=== PATIENT | female | born 1990 | race Caucasian/White ===

== ENCOUNTER 2019-05-14 07:47 | Inpatient (IN) ==
[2019-05-14] MEDS ORDERED: Naloxone 0.4 MG/ML INJ IVP PRN (07:50)
[2019-05-14] MEDS ORDERED: Metoclopramide 10 MG/2 ML VIAL IVP PRN (07:50)
[2019-05-14] MEDS ORDERED: Lidocaine 1% 20 ML MDV INFILT PRN (07:50)
[2019-05-14] MEDS ORDERED: *HR* Nalbuphine 10 MG/ML AMPUL IVP PRN (07:50)
[2019-05-14] MEDS ORDERED: Famotidine 20 MG/2 ML VIAL IVP PRN (07:50)
[2019-05-14] MEDS ORDERED: Ondansetron 4 MG/2 ML VIAL IVP PRN (07:50)
[2019-05-14] MEDS ORDERED: miSOPROStol 25 MCG TABLET VG SCH (08:00)
[2019-05-14] MEDS ORDERED: Ringers Solution, Lactated 1,000 ML IVC SCH (08:00)
[2019-05-14 08:37] LABS: Basophils % 0.4 %; Eosinophils # 0.2 K/mcL (0.0-0.6); Hematocrit 37.6 % (35.3-44.9); Hemoglobin 12.7 g/dL (11.5-15.4); Immature Granulocytes % 0.8 % (0-4); Lymphocytes # 1.8 K/mcL (0.6-4.6); Lymphocytes % 22.9 %; Mean Corpuscular HGB Conc 33.8 g/dL (31.6-35.5); Mean Corpuscular Hemoglobin 31.8 pg (28.0-33.3); Mean Platelet Volume 10.4 fL (9.4-12.4); Monocytes # 0.6 K/mcL (0.0-1.3); Monocytes % 7.7 %; Neutrophils # 5.1 K/mcL (1.6-8.9); Platelet Count 217 K/mcL (140-400); Segmented Neutrophils % 66.2 %; White Blood Count 7.7 K/mcL (4.3-11.1)
[2019-05-14 08:52] LABS: Amphetamine Screen,Urine Negative ng/mL (Cutoff=1000); Barbiturate Screen,Urine Negative ng/mL (Cutoff=200); Benzodiazepines Screen,Urine Negative ng/mL (Cutoff=200); Cannabinoid Screen,Urine Negative ng/mL (Cutoff = 50); Cocaine Screen,Urine Negative ng/mL (Cutoff= 300); Opiate Screen,Urine Negative ng/mL (Cutoff=300); Phencyclidine Screen,Urine Negative ng/mL (Cutoff=25)
--- NOTE | 2019-05-14 09:35 | OB/GYN History & Physical ---
Date of Encounter: 05/14/19 Time of Encounter: 09:32 Assessment and Plan (1) 40 weeks gestation of Current visit: No Status: Resolved 28-year-old at 40+4 weeks, Induction of labor, History of retained placenta 2, GBS negative/O+ Plan: Cytotec 50 g given orally, We will reexamine 4 hours approximately after Cytotec dose #1, Patient does not want epidural, Anticipate , History of Present Illness HPI: Ms. Payne is a 28 year old at 40+4 weeks who presents to labor and delivery for induction of labor. She does not report leaking of fluid, vaginal bleeding or contractions, feels good movement. history uncomplicated though the patient had retained placenta in her last 2 deliveries. The second delivery required extraction of the placenta in the OR under anesthesia. GBS negative, blood type O+ Past Med Surg Social Fam HX - Past Medical History Medical history: no medical history Additional medical history: vaginal delivery 2010 Psychiatric history: no psych history - Past Surgical History Surgical History: other Additional surgical history: Surgery for Ectopic - Social History Smoking Status: Former smoker Smokeless Tobacco Status: No Alcohol use: none Drug use: none - Family History Mother Name: Denies any family history Obstetrical History - Pregnancies : 4 Para: 2 Medications and Allergies Vit/FA 1 tab PO DAILY 08/07/15 [History] Ferrous Sulfate 325 mg PO BIDWM #60 tablet 08/09/15 [Rx] Allergy/AdvReac Type Severity Reaction Status Date / Time No Known Allergies Allergy Verified 08/07/15 23:53 Review of System OB All systems PM: reviewed and no additional remarkable complaints except as stated Exam - Constitutional Constitutional: no acute distress - HEENT HEENT: PERRL - Neck Neck exam: full ROM - Lungs Respiratory exam: CTAB - Cardiovascular Cardiovascular exam: RRR - Abdomen Abdomen: Present: gravid Results Result Diagrams: 05/14/19 08:05 All other labs normal. - VTE Reasons for not Prescribing Prophylaxis: Treatment not Indicated - Low risk for VTE
[2019-05-14] MEDS ORDERED: Oxytocin 20 units/ LR 1000 mL 20 UNIT/1,000 ML BAG IVC SCH ×2 (13:00→21:01)
--- NOTE | 2019-05-14 13:02 | OB Labor Progress Note ---
Date of Encounter: 05/14/19 Time of Encounter: 13:00 Labor Progress Note - Subjective Subjective: patient is doing well - Vital Signs Vital Signs: VSS - Cervix Cervix: 2-3cm/60%/-2 - Heart Tones Heart Tones: 145/mod fredy/+accels, no decels - [place]: Q2-4 - Interventions Interventions: start pitocin, anticipate
--- NOTE | 2019-05-14 17:39 | OB Labor Progress Note ---
Date of Encounter: 05/14/19 Time of Encounter: 17:37 Labor Progress Note - Subjective Subjective: Patient is doing well - Vital Signs Vital Signs: VSS - Cervix Cervix: 3cm/75%/-1 - Heart Tones Heart Tones: 140/mod fredy/+accels, no decels - [place]: Q1-2 - Interventions Interventions: patient AROM'ed, pitocin on 6, anticipate
--- NOTE | 2019-05-14 20:03 | OB/GYN Procedure Note ---
Delivery - Delivery Date: 05/14/19 Provider: Latia Burr Intrapartum events: none Delivery induction: oxytocin Delivery augmentation: rupture of membranes Delivery monitor: external FHT, external uterine Anesthesia: none Quantitated Blood Loss: 50 - Repair Episiotomy: none Laceration Description: Periurethral - Complications Delivery complications: none Delivery comments: Ramila is a 28-year-old now who delivered a viable female at 1943hrs. Infant was delivered LANDRY, no nuchal cord, Apgars 8/9, EFW 3315g (7 lbs 4 oz), placenta delivered at 1946hrs, bilateral bisi-urethral lacerations h emostatic without repair, EBL 50. Mother and infant stable. - Disposition Mom disposition: stable in LDR [place] disposition: stable in LDR
[2019-05-14] MEDS ORDERED: Measles/Mumps/Rubella Vacc 0.5 ML VIAL SQ PRN (21:01)
[2019-05-14] MEDS ORDERED: Ibuprofen 600 MG TABLET PO PRN (21:01)
[2019-05-14] MEDS ORDERED: Acetaminophen 325 MG TABLET PO PRN (21:01)
[2019-05-14] MEDS ORDERED: Rho Immune Globulin 1,500 UNIT SYRINGE IM PRN (21:01)
[2019-05-15 05:35] LABS: Basophils % 0.3 %; Eosinophils # 0.1 K/mcL (0.0-0.6); Eosinophils % 0.9 %; Hematocrit 33.6 % (35.3-44.9); Hemoglobin 11.4 g/dL (11.5-15.4); Immature Granulocytes % 0.4 % (0-4); Lymphocytes # 2.1 K/mcL (0.6-4.6); Lymphocytes % 16.9 %; Mean Corpuscular HGB Conc 33.9 g/dL (31.6-35.5); Mean Corpuscular Hemoglobin 32.4 pg (28.0-33.3); Mean Corpuscular Volume 95.5 fL (83.0-100.0); Mean Platelet Volume 10.1 fL (9.4-12.4); Monocytes % 8.2 %; Neutrophils # 9.2 K/mcL (1.6-8.9); Platelet Count 203 K/mcL (140-400); Red Blood Count 3.52 M/mcL (3.82-4.97); Red Cell Distribution Width 12.9 % (11.5-14.5); Segmented Neutrophils % 73.3 %; White Blood Count 12.6 K/mcL (4.3-11.1)
--- NOTE | 2019-05-15 08:38 | Discharge Summary ---
Date of Encounter: 05/15/19 Time of Encounter: 08:35 - Discharge Diagnosis (1) Status post vaginal delivery Priority: Primary Status: Resolved Comments: Patient meeting day one milestones. Pain well-controlled with prescribed medications. Voiding without difficulty, tolerating regular diet, bleeding light. No bowel movement yet. Anticipate discharge tonight (2) Periurethral laceration, delivered, current hospitalization Priority: Secondary Status: Acute Comments: Motrin, dermoplast, ice packs as needed for discomfort. - Discharge Medications Prescriptions: New Ibuprofen [Motrin] 600 mg PO Q6H PRN #60 tablet PRN Reason: Cramping Acetaminophen [Tylenol] 650 mg PO Q6H PRN tablet PRN Reason: Mild Pain Docusate [Colace] 100 mg PO BID capsule Continued Vit/FA 1 tab PO DAILY Discontinued Ferrous Sulfate 325 mg PO BIDWM #60 tablet Home Medications: Vit/FA 1 tab PO DAILY 08/07/15 [History] Acetaminophen [Tylenol] 650 mg PO Q6H PRN tablet 05/15/19 [Rx] Docusate [Colace] 100 mg PO BID capsule 05/15/19 [Rx] Ibuprofen [Motrin] 600 mg PO Q6H PRN #60 tablet 05/15/19 [Rx] Allergies/Adverse Reactions: Allergy/AdvReac Type Severity Reaction Status Date / Time No Known Allergies Allergy Verified 08/07/15 23:53 Data Procedures and tests throughout hospitalization: Laboratory Tests 05/14/19 05/14/19 05/15/19 08:05 08:05 05:17 WBC 7.7 12.6 H D RBC 4.00 3.52 L Hgb 12.7 11.4 L Hct 37.6 33.6 L MCV 94.0 95.5 MCH 31.8 32.4 MCHC 33.8 33.9 RDW 13.0 12.9 Plt Count 217 203 MPV 10.4 10.1 Immature Gran % 0.8 0.4 Seg Neutrophils % 66.2 73.3 Lymphocytes % 22.9 16.9 Monocytes % 7.7 8.2 Eosinophils % 2.0 0.9 Basophils % 0.4 0.3 Neutrophils # 5.1 9.2 H Lymphocytes # 1.8 2.1 Monocytes # 0.6 1.0 Eosinophils # 0.2 0.1 Basophils # 0.0 0.0 Urine Opiates Screen Negative Ur Buprenorphine Scrn Negative Ur Barbiturates Screen Negative Ur Phencyclidine Scrn Negative Ur Amphetamines Screen Negative U Benzodiazepines Scrn Negative Urine Cocaine Screen Negative U Marijuana (THC) Screen Negative Ur Drug Screen Interp See Below Labs on day of discharge: Labs from last 24 hours 05/15/19 05/14/19 05/14/19 05:17 08:05 08:05 WBC 12.6 H D 7.7 RBC 3.52 L 4.00 Hgb 11.4 L 12.7 Hct 33.6 L 37.6 MCV 95.5 94.0 MCH 32.4 31.8 MCHC 33.9 33.8 RDW 12.9 13.0 Plt Count 203 217 MPV 10.1 10.4 Immature Gran % 0.4 0.8 Seg Neutrophils % 73.3 66.2 Lymphocytes % 16.9 22.9 Monocytes % 8.2 7.7 Eosinophils % 0.9 2.0 Basophils % 0.3 0.4 Neutrophils # 9.2 H 5.1 Lymphocytes # 2.1 1.8 Monocytes # 1.0 0.6 Eosinophils # 0.1 0.2 Basophils # 0.0 0.0 Urine Opiates Screen Negative Ur Buprenorphine Scrn Negative Ur Barbiturates Screen Negative Ur Phencyclidine Scrn Negative Ur Amphetamines Screen Negative U Benzodiazepines Scrn Negative Urine Cocaine Screen Negative U Marijuana (THC) Screen Negative Ur Drug Screen Interp See Below Date of admission: 05/14/19 07:47 Consults: 05/14/19 21:01 Consult to Wood Grinder Operator [CONS] Routine Comment: Vaginal delivery, consult needed Discharging clinician: Nicole Reis Anticipated date of discharge: 05/15/19 - Patient Status Disposition: Home, Self-Care Condition: Good Functional capacity at discharge: independent ambulation Overall status at discharge: patient is progressing back to baseline - Discharge Instructions Follow Up With: Latia Burr MD [Partnered Physician] - - Diet and Activity Activity: resume usual activities as tolerated Diet: regular diet Hospital Course Reason for admission: induction of labor, IUP at term Delivery: Episiotomy: none Laceration: other (periurethral) Other procedures: none complications: none Discharge diagnosis: IUP at term delivered Hospital course: Delivery Date: 05/14/19 Provider: Latia Burr Intrapartum events: none Delivery induction: oxytocin Delivery augmentation: rupture of membranes Delivery monitor: external FHT, external uterine Anesthesia: none Quantitated Blood Loss: 50 - Repair Episiotomy: none Laceration Description: Periurethral - Complications Delivery complications: none Delivery comments: Ramila is a 28-year-old now who delivered a viable female infant at 1943hrs. was delivered LANDRY, no nuchal cord, Apgars 8/9, EFW 3315g (7 lbs 4 oz), placenta delivered at 1946hrs, bilateral bisi-urethral lacerations hemostatic without repair, EBL 50. Mother and stable. - Disposition Mom disposition: stable in LDR disposition: stable in LDR Time Attestation: Total time spent providing and/or coordinating discharge services: Time Spent: Less than 30 minutes Exam - Constitutional Vitals: Temp Pulse Resp BP Pulse Ox 97.9 F 55 14 118/70 98 05/15/19 08:06 05/15/19 08:06 05/15/19 08:06 05/15/19 08:06 05/15/19 08:06 General appearance IM: A&O X 3, pleasant, no acute distress, answers questions appropriately - Respiratory Respiratory exam: Absent: respiratory distress - Cardiovascular Cardiovascular exam IM: Present: RRR, +S1, +S2. Absent: irregular rhythm - GI/Abdominal GI/Abdominal exam IM: normal bowel sounds, soft - Rectal Rectal exam: deferred - External exam: normal external exam Uterine Tone: Firm Uterus Position: At Umbilicus, Midline - Extremities Exam Extremities exam IM: Present: full ROM, normal capillary refill, normal inspection. Absent: calf tenderness - Neurological Exam Neurological exam: alert, normal gait, oriented X3
[2019-05-15] MEDS ORDERED: Prenatal Vit/FA 1 EACH TABLET PO SCH (09:00)
[2019-05-15] MEDS ORDERED: NON-FORMULARY MEDICATION 1 EACH EACH (Prenatal Vit/Fa 1 TAB) PO SCH (09:00)
[2019-05-15 15:49] VITALS: BP 103/66
== END 2019-05-15 17:30 | disposition home or self-care (01) | DRG 560 ==
LOC: 1NENULAB 07:47 → 1NENUOBS 22:31
PROVIDERS: ADMIT Student in an Organized Health Care Education/Training Program; ATTEND Student in an Organized Health Care Education/Training Program